=== PATIENT | female | born 1970 | race African-American/Black ===

== ENCOUNTER 2017-06-05 13:12 | Emergency (ER) | payer MEDICARE ==
[2017-06-05 13:52] LABS: Hemoglobin 14.2 g/dL (12.0-16.0); Mean Corpuscular HGB CONC 32.5 g/dL (32.0-36.0); Mean Corpuscular Volume 86.2 fl (81.0-99.0); Mean Platelet Volume 7.8 fL (7.4-10.4); Platelet Count 257 thou/uL (130-400); RBC Distribution Width 12.5 % (11.5-14.5); Red Blood Cell (RBC) Count 5.06 mill/uL (4.20-5.40)
--- NOTE | 2017-06-05 13:55 | RAD ---
RADIOGRAPH CHEST 1 VIEW: HISTORY: A 46-year-old female with dyspnea. FINDINGS: There are no air space densities, pulmonary edema, pneumothorax, or cardiomegaly. The lateral costop hrenic angles are sharp. IMPRESSION: No acute cardiopulmonary findings. jn [] POS: [facility]
[2017-06-05 14:17] LABS: CKMB 1.4 ng/mL (0-6.6); Troponin I Less than 0.010 ng/mL (< 0.028)
[2017-06-05 14:18] LABS: Eosinophils 1 % (0-10); Lymphocytes 46 % (21-51); MDiff Complete? YES; Monocytes 6 % (0-10); Neutrophil 39 % (42-75); PLT Morphology Comment Appears Adequate; RBC Morphology Normal; Reactive Lymphocytes 6 % (0-10)
[2017-06-05 14:31] LABS: ALT (SGPT) 16 U/L (8-55); AST (SGOT) 21 U/L (5-34); Albumin 4.9 g/dL (3.5-5.0); Alkaline Phosphatase 116 U/L (40-150); Anion Gap 16 mmol/L (10-20); BUN (Urea Nitrogen) 10 mg/dL (7.0-18.7); Bilirubin, Total 1.2 mg/dL (0.2-1.2); CK (CPK) 117 U/L (29-168); Calc. Creatinine Clearance 0 mL/min (70-130); Calcium 11.1 mg/dL (7.8-10.44); Carbon Dioxide 26 mmol/L (22-29); Chloride 100 mmol/L (98-107); Estimated GFR-MDRD 75; Globulin 3.9 g/dL (2.4-3.5); Glucose 97 mg/dL (70-105); Protein, Total 8.8 g/dL (6.0-8.3); Sodium 138 mmol/L (136-145)
[2017-06-05] MEDS ORDERED: Ondansetron HCl/PF 4 MG/2 ML Vial ONE ×2 (14:39→17:40)
[2017-06-05] MEDS ORDERED: Morphine 2 MG/ML SYRINGE ONE (14:39)
[2017-06-05] MEDS ORDERED: Pantoprazole 40 MG VIAL ONE (14:39)
[2017-06-05 15:55] LABS: Bilirubin Negative (Negative); Blood, Urine Moderate (Negative); Clarity CLOUDY (Clear); Glucose, Urine (Dipstick) Negative (Negative); Leukocyte Large (Negative); Nitrite Negative (Negative); Protein, Urine (Dipstick) Negative (Neg-Trace); Specific Gravity, Urine 1.005 (1.002-1.036); Urobilinogen 0.2 mg/dL (0.2-1.0); pH, Urine 7.5 (5.0-9.0)
[2017-06-05 15:56] LABS: BHCG - Serum Negative (NEGATIVE); Pregs Control Background? CLEAR/WHITE (CLR/WHITE); Pregs Control Bar Appear? YES (CONTROL BAR)
[2017-06-05 15:57] LABS: Bacteria/HPF 2+ HPF (None Seen); Hyaline Casts/LPF 0-3 HYALINE CAST LPF (0-3 Hyaline); Pathc Cast-AUWi Flag 0.13 (0-2.49); RBC/HPF 0-3 HPF (0-3); WBC/HPF 21-50 HPF (0-3)
[2017-06-05 16:27] LABS: Pregnancy Test - Urine (BHCG) Negative (Negative); Pregu Control Background? CLEAR/WHITE (CLR/WHITE); Pregu Control Bar Appear? YES (CONTROL BAR); Specific Gravity 1.005 (1.002-1.036)
--- NOTE | 2017-06-05 16:42 | CT ---
CT ARTERIOGRAM CHEST WITH IV CONTRAST AND 3D MIP IMAGING: Date: 06/05/17 HISTORY: Chest pain. Dyspnea. FINDINGS: There is good contrast opacification of the pulmonary arteries and thoracic aorta with bovine origin of the great vessels from the aortic arch. No parenchymal lung mass, infiltrate, pleural fluid, or pn eumothorax are apparent. There is mild scarring at each lung base. IMPRESSION: No CT evidence of pulmonary embolus. POS: [facility]
[2017-06-05] MEDS ORDERED: Milk Of Magnesia 30 ML UDCUP ONE (19:13)
[2017-06-05] MEDS ORDERED: Lidocaine Viscous Sol 2% 15 ml UD Cup ONE (19:13)
[2017-06-05 19:52] LABS: INR-International Normal Ratio 1.1; PTT 31.8 SEC (22.9-36.1); Prothrombin Time 14.7 SEC (12.0-14.7)
[2017-06-05 20:14] LABS: Troponin I Less than 0.010 ng/mL (< 0.028)
== END 2017-06-05 20:44 | disposition home or self-care (01) ==
LOC: ERS 13:12
DX: N39.0 Urinary tract infection, site not specified (principal); R07.89 Other chest pain; E03.9 Hypothyroidism, unspecified; E11.9 Type 2 diabetes mellitus without complications; E78.5 Hyperlipidemia, unspecified; Z86.711 Personal history of pulmonary embolism; I10 Essential (primary) hypertension; F41.9 Anxiety disorder, unspecified; F32.9 Major depressive disorder, single episode, unspecified; Z79.899 Other long term (current) drug therapy; Z79.01 Long term (current) use of anticoagulants; Z79.84 Long term (current) use of oral hypoglycemic drugs
CPT/HCPCS: 36415; 71045; 71275; 80053; 81003; 81015; 81025; 82553; 83690; 84484; 84703; 85025; 85610; 85730; 87086; 93005; 94760; 96361; 96374; 96375; 96376; C9113; J0696; J2270; J2405

== ENCOUNTER 2017-10-08 17:58 | Emergency (ER) | payer MEDICARE ==
[~2017-10-08 17:58] MED LIST: ISOVUE-370 76%-LOCM 1 ML ONE
[2017-10-08 18:39] LABS: Bacteria/HPF None Seen HPF (None Seen); Bilirubin Negative (Negative); Blood, Urine Large (Negative); Clarity CLEAR (Clear); Glucose, Urine (Dipstick) Negative (Negative); Hyaline Casts/LPF 0-3 HYALINE CAST LPF (0-3 Hyaline); Leukocyte Trace (Negative); Nitrite Negative (Negative); Pathc Cast-AUWi Flag 0.58 (0-2.49); Protein, Urine (Dipstick) Negative (Neg-Trace); RBC/HPF GREATER THAN 50-TNTC HPF (0-3); Specific Gravity, Urine 1.024 (1.002-1.036); Squamous Epithelial None Seen HPF (0-3); pH, Urine 5.5 (5.0-9.0)
[2017-10-08 19:10] LABS: Hemoglobin 12.7 g/dL (12.0-16.0); Mean Corpuscular HGB CONC 32.5 g/dL (32.0-36.0); Mean Corpuscular Hemoglobin 27.5 pg (27.0-31.0); Mean Corpuscular Volume 84.8 fl (81.0-99.0); Platelet Count 264 thou/uL (130-400); RBC Distribution Width 13.2 % (11.5-14.5); Red Blood Cell (RBC) Count 4.61 mill/uL (4.20-5.40); White Blood Cell (WBC) Count 5.1 thou/uL (4.8-10.8)
[2017-10-08 19:20] LABS: INR-International Normal Ratio 1.2; Prothrombin Time 15.3 SEC (12.0-14.7)
[2017-10-08 19:27] LABS: Lymphocytes 47 % (21-51); MDiff Complete? YES; Monocytes 6 % (0-10); Neutrophil 47 % (42-75); PLT Morphology Comment Appears Adequate
[2017-10-08 19:56] LABS: ALT (SGPT) 13 U/L (8-55); AST (SGOT) 21 U/L (5-34); Albumin 4.2 g/dL (3.5-5.0); Alkaline Phosphatase 135 U/L (40-150); Anion Gap 10 mmol/L (10-20); BUN (Urea Nitrogen) 8 mg/dL (7.0-18.7); Bilirubin, Total 0.7 mg/dL (0.2-1.2); Calc. Creatinine Clearance 0 mL/min (70-130); Carbon Dioxide 26 mmol/L (22-29); Chloride 105 mmol/L (98-107); Estimated GFR-MDRD 84; Globulin 3.5 g/dL (2.4-3.5); Glucose 76 mg/dL (70-105); Lipase 133 U/L (8-78); Potassium 3.6 mmol/L (3.5-5.1); Protein, Total 7.7 g/dL (6.0-8.3); Sodium 137 mmol/L (136-145)
[2017-10-08] MEDS ORDERED: Ondansetron ODT 4 MG TAB ONE (20:03)
[2017-10-08] MEDS ORDERED: Morphine 4 MG/ML VIAL ONE (20:21)
[2017-10-08 20:31] LABS: Pregnancy Test - Urine (BHCG) Negative (Negative); Pregu Control Background? CLEAR/WHITE (CLR/WHITE); Pregu Control Bar Appear? YES (CONTROL BAR); Specific Gravity 1.024 (1.002-1.036)
--- NOTE | 2017-10-08 22:07 | ULT ---
ULTRASOUND PELVIC TRANSABDOMINAL AND TRANSVAGINAL 10/08/17 HISTORY: Pelvic pain. COMPARISON: Pelvic ultrasound from 2015. FINDINGS: Real time chopra scale with color flow and spectral analysis of the pelvis was performed with transabdo ruperto and transvaginal approach. Right ovary is not well seen. Small left ovarian cyst is present. Left ovary measures 2.7 x 1.8 x 2.4 cm with adequate vascular flow. Endometrial thickness is 9 mm. Th e uterus measures 8.9 x 4.9 x 6 cm. Trace free fluid. IMPRESSION: 1. Trace free fluid. 2. Nonvisualization of the right ovary due to overlying bowel gas. 3. Normal appearance of the endometrium. POS: [facility]
--- NOTE | 2017-10-08 22:21 | ULT ---
RIGHT LOWER EXTREMITY VENOUS DOPPLER 10/08/17 HISTORY: Edema of the right lower extremity. COMPARISON: Ultrasound from 2015. TECHNIQUE: Real time chopra scale, color doppler with spectral analysis of the right lower extremity venous system was performed with the linear transducer. The common femoral, femoral, proximal portion of the great er saphenous and deep femoral veins as well as the popliteal and posterior tibial veins were interrog ated. Normal flow and augmentation and compression. IMPRESSION: No deep venous thrombosis. POS: [facility]
--- NOTE | 2017-10-08 23:02 | CT ---
CT ABDOMEN AND PELVIS WITH CONTRAST: 10/08/17 HISTORY: Abdominal pain. COMPARISON: CT abdomen and pelvis 12/19/16. FINDINGS: Lung bases are clear. No pericardial effusion. Mild diastasis recti. The appendix is visualized and appears normal. There are clips along the fallop thom tubes bilaterally. No dilated loops of large or small bowel. No evidence of bowel obstruction. The spleen, pancreas, alberta er and gallbladder all are unremarkable. No hydronephrosis. Skeleton is unremarkable. IMPRESSION: 1. No acute inflammatory process in abdomen or pelvis. 2. Normal appendix. POS: [facility]
[2017-10-08] MEDS ORDERED: cefTRIAXone\\ROCEPHIN 1 GM VIAL ONE (23:04)
[2017-10-08] MEDS ORDERED: Ketorolac Tromethamine 30 MG/ML VIAL ONE (23:50)
[2017-10-10 23:07] LABS: Chlamydia by PCR Not Detected (NotDetected); GC by PCR Not Detected (NotDetected)
== END 2017-10-09 00:15 | disposition home or self-care (01) ==
LOC: ERS 17:58
DX: N39.0 Urinary tract infection, site not specified (principal); K86.1 Other chronic pancreatitis; R79.1 Abnormal coagulation profile; E03.9 Hypothyroidism, unspecified; E11.9 Type 2 diabetes mellitus without complications; E78.5 Hyperlipidemia, unspecified; I10 Essential (primary) hypertension; F32.9 Major depressive disorder, single episode, unspecified; F41.9 Anxiety disorder, unspecified; Z79.84 Long term (current) use of oral hypoglycemic drugs; Z79.899 Other long term (current) drug therapy
CPT/HCPCS: 74177; 76856; 80053; 81003; 81015; 81025; 83690; 85025; 85610; 87480; 87491; 87510; 87591; 87660; 96361; 96365; 96375; J0696; J1885; J2270; Q0162

== ENCOUNTER 2017-12-24 13:39 | Emergency (ER) | payer MEDICARE ==
[2017-12-24 14:13] LABS: #Basophils 0.1 thou/uL (0.0-0.2); #Eosinphils 0.1 thou/uL (0.0-0.7); #Lymphocytes 2.5 thou/uL (1.20-3.40); #Monocytes 0.3 thou/uL (0.11-0.59); #Neutrophils 2.4 thou/uL (1.40-6.50); %Basophils 2.1 % (0.0-1.0); %Monocytes 5.5 % (0.0-10.0); %Neutrophils 44.4 % (42.0-75.0); Hemoglobin 12.6 g/dL (12.0-16.0); Mean Corpuscular HGB CONC 33.5 g/dL (32.0-36.0); Mean Corpuscular Hemoglobin 28.2 pg (27.0-31.0); Mean Corpuscular Volume 84.2 fL (78.0-98.0); Mean Platelet Volume 7.5 fL (7.4-10.4); Platelet Count 227 thou/uL (130-400); Red Blood Cell (RBC) Count 4.48 mill/uL (4.20-5.40); White Blood Cell (WBC) Count 5.5 thou/uL (4.8-10.8)
[2017-12-24 14:29] LABS: Bilirubin Negative (Negative); Blood, Urine Negative (Negative); Clarity CLOUDY (Clear); Glucose, Urine (Dipstick) Negative (Negative); Leukocyte Small (Negative); Nitrite Negative (Negative); Protein, Urine (Dipstick) Negative (Neg-Trace); Specific Gravity, Urine 1.027 (1.002-1.036); pH, Urine 5.5 (5.0-9.0)
[2017-12-24 14:30] LABS: Bacteria/HPF None Seen HPF (None Seen); Hyaline Casts/LPF 0-3 HYALINE CAST LPF (0-3 Hyaline); Pathc Cast-AUWi Flag 0.29 (0-2.49); RBC/HPF 0-3 HPF (0-3)
[2017-12-24 14:31] LABS: Pregnancy Test - Urine (BHCG) Negative (Negative); Pregu Control Background? CLEAR/WHITE (CLR/WHITE); Pregu Control Bar Appear? YES (CONTROL BAR); Specific Gravity 1.027 (1.002-1.036)
[2017-12-24 14:36] LABS: ALT (SGPT) 12 U/L (8-55); AST (SGOT) 15 U/L (5-34); Albumin 4.4 g/dL (3.5-5.0); Alkaline Phosphatase 128 U/L (40-150); Anion Gap 14 mmol/L (10-20); BUN (Urea Nitrogen) 9 mg/dL (7.0-18.7); Bilirubin, Total 0.9 mg/dL (0.2-1.2); Calc. Creatinine Clearance 0 mL/min (70-130); Carbon Dioxide 23 mmol/L (22-29); Chloride 105 mmol/L (98-107); Estimated GFR-MDRD 78; Globulin 3.6 g/dL (2.4-3.5); Glucose 145 mg/dL (70-105); Potassium 3.8 mmol/L (3.5-5.1); Sodium 138 mmol/L (136-145)
[2017-12-24] MEDS ORDERED: diphenhydrAMINE 12.5 MG/5 ML UDCUP ONE (15:08)
[2017-12-24] MEDS ORDERED: diphenhydrAMINE 50 MG/ML VIAL ONE (15:09)
[2017-12-24] MEDS ORDERED: cefTRIAXone\\ROCEPHIN 1 GM VIAL ONE (15:11)
[2017-12-24] MEDS ORDERED: Haloperidol Lactate 5 MG/ML VIAL ONE (15:11)
--- NOTE | 2017-12-24 16:10 | CT ---
CT ABDOMEN AND PELVIS WITH IV CONTRAST 12/24/17 HISTORY: Abdominal pain, bloating. COMPARISON: 10/08/17. FINDINGS: Lung bases are clear. The liver, spleen, kidneys, adrenal glands and pancreas have a normal CT appear ance. Phleboliths are apparent within the pelvis. Urinary bladder is decompressed. Ligation clips are associated with each adnexa. Lack of oral contrast limits evaluation of the bowel. No evidence of obstruction or inflammation. IMPRESSION: No significant abnormalities are demonstrated to explain abdominal pain. POS: [facility]
== END 2017-12-24 17:32 | disposition home or self-care (01) ==
LOC: ERS 13:39
DX: N12 Tubulo-interstitial nephritis, not specified as acute or chronic (principal); E11.9 Type 2 diabetes mellitus without complications; E03.9 Hypothyroidism, unspecified; E78.5 Hyperlipidemia, unspecified; I10 Essential (primary) hypertension; Z86.711 Personal history of pulmonary embolism; F41.9 Anxiety disorder, unspecified; F32.9 Major depressive disorder, single episode, unspecified; Z79.899 Other long term (current) drug therapy; Z79.84 Long term (current) use of oral hypoglycemic drugs
CPT/HCPCS: 74177; 80053; 81003; 81015; 81025; 85025; 96361; 96365; 96375; J0696; J1200; J1630

== ENCOUNTER 2018-05-16 11:46 | Emergency (ER) | payer MEDICARE ==
[2018-05-16] MEDS ORDERED: Metoclopramide HCl 10 MG/2 ML VIAL ONE (12:20)
[2018-05-16 12:41] LABS: ALT (SGPT) 19 U/L (8-55); AST (SGOT) 20 U/L (5-34); Alkaline Phosphatase 134 U/L (40-150); Anion Gap 13 mmol/L (10-20); BUN (Urea Nitrogen) 6 mg/dL (7.0-18.7); Bilirubin, Total 0.9 mg/dL (0.2-1.2); Calc. Creatinine Clearance 0 mL/min (70-130); Calcium 9.2 mg/dL (7.8-10.44); Carbon Dioxide 26 mmol/L (22-29); Chloride 108 mmol/L (98-107); Estimated GFR-MDRD 90; Globulin 3.3 g/dL (2.4-3.5); Glucose 96 mg/dL (70-105); Potassium 4.1 mmol/L (3.5-5.1); Protein, Total 7.3 g/dL (6.0-8.3); Sodium 143 mmol/L (136-145)
[2018-05-16 12:42] LABS: Anisocytosis SLIGHT = 6-15 cells (100X) (0-5/hpf); Band 1 % (5-11); Elliptocytes SLIGHT = 2-5 cells (100X) (0-1/hpf); Hemoglobin 11.5 g/dL (12.0-16.0); Hypochromia SLIGHT = 6-15 cells (100X) (0-5/hpf); Lymphocytes 38 % (21-51); MDiff Complete? YES; Mean Corpuscular HGB CONC 29.9 g/dL (32.0-36.0); Mean Corpuscular Hemoglobin 25.3 pg (27.0-31.0); Mean Corpuscular Volume 84.7 fL (78.0-98.0); Mean Platelet Volume 8.4 fL (7.4-10.4); Monocytes 10 % (0-10); Neutrophil 42 % (42-75); PLT Morphology Comment Appears Adequate; Platelet Count 231 thou/uL (130-400); RBC Distribution Width 14.1 % (11.5-14.5); Reactive Lymphocytes 7 % (0-10); Red Blood Cell (RBC) Count 4.55 mill/uL (4.20-5.40); White Blood Cell (WBC) Count 5.4 thou/uL (4.8-10.8)
--- NOTE | 2018-05-16 12:51 | CT ---
CT BRAIN: DATE: 05/16/2018. PROVIDED CLINICAL HISTORY: Fever, right upper extremity weakness. FINDINGS: Comparison 12/15/2015. The ventricular system appears normal in size and morphology. There is no edis dence for intracranial hemorrhage or mass effect. The extracranial soft tissues and osseous structur es demonstrate an unremarkable CT appearance. IMPRESSION: No evidence for intracranial hemorrhage or mass effect. POS: [facility]
--- NOTE | 2018-05-16 12:53 | RAD ---
TWO VIEWS CHEST: DATE: 05/16/2018. PROVIDED CLINICAL HISTORY: Fever. FINDINGS: Comparison 11/30/2011. Cardiac and mediastinal silhouette are within normal limits. Lungs appear josie r. No pleural fluid or pneumothorax apparent. IMPRESSION: No evidence for an acute cardiopulmonary process. POS: [facility]
[2018-05-16 12:58] LABS: BHCG - Serum Negative (NEGATIVE); Pregs Control Background? CLEAR/WHITE (CLR/WHITE); Pregs Control Bar Appear? YES (CONTROL BAR)
== END 2018-05-16 13:38 | disposition home or self-care (01) ==
LOC: SCSER 11:46
DX: R19.7 Diarrhea, unspecified (principal); R50.9 Fever, unspecified; E11.9 Type 2 diabetes mellitus without complications; E03.9 Hypothyroidism, unspecified; E78.5 Hyperlipidemia, unspecified; F41.9 Anxiety disorder, unspecified; F32.9 Major depressive disorder, single episode, unspecified; I10 Essential (primary) hypertension; I42.9 Cardiomyopathy, unspecified
CPT/HCPCS: 70450; 71046; 80053; 84484; 84703; 85025; 87804; 93005; 96365; J2765

== ENCOUNTER 2018-12-26 08:19 | Outpatient (CLI) | payer OTHER ==
--- NOTE | 2018-12-26 09:13 | CT ---
CT abdomen and pelvis with IV and oral contrast HISTORY: Abdominal pain. Reflux. Irritable bowel syndrome. COMPARISON: 12/24/2017. FINDINGS: Minimal scarring at the right lung base. The liver, spleen, kidneys, adrenal glands, and pa ncreas have a normal CT appearance. No enlarged lymph nodes or free fluid. No evidence of bowel obstruction or inflammation. Ligation clips at each adnexa. IMPRESSION: No significant abnormalities are demonstrated.
[2018-12-26] MEDS ORDERED: ISOVUE-370 76%-LOCM 1 ML ONE (13:32)
== END 2018-12-26 08:20 | disposition home or self-care (01) ==
LOC: BICCT 08:19
PROVIDERS: ATTEND Physician Assistant Medical
DX: K21.9 Gastro-esophageal reflux disease without esophagitis (principal); R19.4 Change in bowel habit; R14.0 Abdominal distension (gaseous); K58.1 Irritable bowel syndrome with constipation; K22.2 Esophageal obstruction; R11.2 Nausea with vomiting, unspecified; R10.84 Generalized abdominal pain
CPT/HCPCS: 74177

== ENCOUNTER 2019-01-08 11:01 | Outpatient (CLI) | payer MEDICARE ==
--- NOTE | 2019-01-13 06:45 | MMO ---
Bilateral MAMMO Bilat Screen [facility]. CLINICAL HISTORY: Patient is 48 years old and is seen for screening. The patient has the following family history of breast cancer: maternal grandmother, great. The patient has no personal history of cancer. VIEWS: The views performed were: bilateral craniocaudal with tomosynthesis and bilateral mediolateral oblique with tomosynthesis. FILMS COMPARED: The present examination has been compared to prior imaging studies performed at [facility] on 01/26/2011, 04/15/2013, 05/28/2014 and 02/08/2017. MAMMOGRAM FINDINGS: There are scattered fibroglandular densities. There are benign appearing calcifications seen in both breasts. There are no suspicious masses, suspicious calcifications, or new areas of architectural distortion. IMPRESSION: THERE IS NO MAMMOGRAPHIC EVIDENCE OF MALIGNANCY. A ROUTINE FOLLOW-UP MAMMOGRAM IN 1 YEAR IS RECOMMENDED. THE RESULTS OF THIS EXAM WERE SENT TO THE PATIENT. ACR BI-RADS Category 2 - Benign finding MAMMOGRAPHY NOTE: 1. A negative mammogram report should not delay a biopsy if a dominant of clinically suspicious mass is present. 2. Approximately 10% to 15% of breast cancers are not detected by mammography. 3. Adenosis and dense breasts may obscure an underlying neoplasm. Reported by: JAJA KUO MD Electonically Signed: [id number]
== END 2019-01-08 11:02 | disposition home or self-care (01) ==
LOC: BICMAMMO 11:01
PROVIDERS: ATTEND Nurse Practitioner Family
DX: Z12.31 Encounter for screening mammogram for malignant neoplasm of breast (principal); Z80.3 Family history of malignant neoplasm of breast
CPT/HCPCS: 77063; 77067

== ENCOUNTER 2019-01-15 08:35 | Outpatient (CLI) | payer MEDICARE, OTHER ==
--- NOTE | 2019-01-15 17:56 | NM ---
NUCLEAR MEDICINE GASTRIC EMPTYING EXAM: RADIOPHARMACEUTICAL: 2.1 mCi Technetium 99m sulfur colloid oral ingestion. FINDINGS: T1/2 is calculated at 167 minutes. Gastric emptying end, terminated at 75% emptying occurs at 241 mi nutes. IMPRESSION: 1. Gastric emptying half-time of 167 minutes. 2. At 4 hours of imaging, there is 75% gastric emptying. POS: [facility]
== END 2019-01-15 08:36 | disposition home or self-care (01) ==
LOC: NM 08:35
PROVIDERS: ATTEND Physician Assistant Medical
DX: K21.9 Gastro-esophageal reflux disease without esophagitis (principal); R14.0 Abdominal distension (gaseous); R15.9 Full incontinence of feces; R10.84 Generalized abdominal pain
CPT/HCPCS: 78264; A9541

== ENCOUNTER 2019-07-09 08:42 | Emergency (ER) | payer MEDICARE ==
[2019-07-09 09:27] LABS: #Basophils 0.1 thou/uL (0.0-0.2); #Eosinphils 0.1 thou/uL (0.0-0.7); #Lymphocytes 1.9 thou/uL (1.20-3.40); #Monocytes 0.4 thou/uL (0.11-0.59); #Neutrophils 4.8 thou/uL (1.40-6.50); %Basophils 1.3 % (0.0-1.0); %Eosinophils 0.9 % (0.0-10.0); %Neutrophils 65.9 % (42.0-75.0); Hemoglobin 12.6 g/dL (12.0-16.0); Mean Corpuscular HGB CONC 31.2 g/dL (32.0-36.0); Mean Corpuscular Hemoglobin 26.3 pg (27.0-31.0); Mean Corpuscular Volume 84.2 fL (78.0-98.0); Platelet Count 262 thou/uL (130-400); RBC Distribution Width 13.1 % (11.5-14.5); Red Blood Cell (RBC) Count 4.81 mill/uL (4.20-5.40); White Blood Cell (WBC) Count 7.2 thou/uL (4.8-10.8)
[2019-07-09 09:36] LABS: BHCG - Serum Negative (NEGATIVE); Pregs Control Background? CLEAR/WHITE (CLR/WHITE); Pregs Control Bar Appear? YES (CONTROL BAR)
[2019-07-09] MEDS ORDERED: Metoclopramide HCl 10 MG/2 ML VIAL ONE (09:36)
[2019-07-09] MEDS ORDERED: Morphine 4 MG/ML VIAL ONE ×2 (09:36→10:55)
[2019-07-09 09:43] LABS: ALT (SGPT) 12 U/L (8-55); AST (SGOT) 16 U/L (5-34); Albumin 4.4 g/dL (3.5-5.0); Alkaline Phosphatase 119 U/L (40-110); Anion Gap 11 mmol/L (10-20); BUN (Urea Nitrogen) 10 mg/dL (7.0-18.7); Bilirubin, Total 1.4 mg/dL (0.2-1.2); Calc. Creatinine Clearance 0 mL/min (70-130); Calcium 9.7 mg/dL (7.8-10.44); Carbon Dioxide 27 mmol/L (22-29); Chloride 103 mmol/L (98-107); Estimated GFR-MDRD 73; Globulin 3.4 g/dL (2.4-3.5); Glucose 121 mg/dL (70-105); Magnesium 1.9 mg/dL (1.6-2.6); Protein, Total 7.8 g/dL (6.0-8.3); Sodium 137 mmol/L (136-145)
--- NOTE | 2019-07-09 09:46 | RAD ---
SINGLE VIEW CHEST: Date: 07/09/2019 COMPARISON: 05/16/18. HISTORY: Left arm and leg pain. Belching and constipation for 1 week. FINDINGS: Single view of the chest shows a normal sized cardiomediastinal silhouette. There is no evidence of c onsolidation, mass, or pleural effusion. The bones are unremarkable. IMPRESSION: No evidence of acute cardiopulmonary disease. POS: [facility]
--- NOTE | 2019-07-09 10:43 | CT ---
CT OF THE BRAIN WITHOUT CONTRAST: COMPARISON: 05/16/2018. HISTORY: Left arm and leg pain. The patient feels like she is stuttering. TECHNIQUE: Multiple contiguous axial images were obtained in a CT of the brain without contrast. FINDINGS: This exam is limited secondary to motion artifact. The brain is normal in morphology and attenuation without focal lesions or confluent areas of infarction. There is no evidence of hydrocephalus, intr acranial hemorrhage, or extraaxial fluid collection. The calvarium and overlying soft tissues are unremarkable. The visualized paranasal sinuses and mast oid air cells are well aerated. IMPRESSION: No evidence of acute intracranial abnormality. POS: [facility]
--- NOTE | 2019-07-09 11:03 | CT ---
CTA CHEST WITH IV CONTRAST AND 3D POSTPROCESSING CT ABDOMEN AND PELVIS WITH IV CONTRAST: HISTORY: Left arm and left leg pain. Abnormal speech, belching, constipation, and nausea. The patient has a history of blood clots and is currently on Eliquis and has had 3 Pes in the past. FINDINGS: Comparison is made with the CT pulmonary angiogram of 06/05/[address] abdomen and pelvis of 12/26/2018 . There is good contrast opacification of the pulmonary arterial vasculature without filling defects to suggest pulmonary embolus. The thoracoabdominal aorta is well opacified without aneurysm or dissect ion. No pleural or pericardial effusions are seen. There is minimal scarring at the right lung base . The liver, spleen, pancreas, adrenal glands, and kidneys are normal. No calcified gallstones are see n. Uterus and ovaries are present. There are postop changes of bilateral tubal ligation. No free a ir, free fluid, or lymphadenopathy is noted in the abdomen or pelvis. The small bowel loops are not abnormally dilated. A normal-appearing appendix is present. No acute osseous abnormalities are seen. IMPRESSION: 1. No CT evidence of pulmonary embolism. 2. No CT evidence of acute process in the abdomen or pelvis. POS: [facility]
[2019-07-09] MEDS ORDERED: Iopamidol-370 76% 500 ML 1 ML ONE (16:23)
== END 2019-07-09 11:58 | disposition home or self-care (01) ==
LOC: ERS 08:42
DX: R10.9 Unspecified abdominal pain (principal); R07.9 Chest pain, unspecified; I42.9 Cardiomyopathy, unspecified; E11.9 Type 2 diabetes mellitus without complications; E03.9 Hypothyroidism, unspecified; E78.5 Hyperlipidemia, unspecified; E78.00 Pure hypercholesterolemia, unspecified; I10 Essential (primary) hypertension; Z86.711 Personal history of pulmonary embolism; F41.9 Anxiety disorder, unspecified; F32.9 Major depressive disorder, single episode, unspecified; Z79.02 Long term (current) use of antithrombotics/antiplatelets
CPT/HCPCS: 36415; 70450; 71045; 71275; 74177; 80053; 83735; 84484; 84703; 85025; 93005; 94760; 96365; 96375; 96376; J2270; J2765; Q9967

== ENCOUNTER 2019-10-24 13:34 | Emergency (ER) | payer MEDICARE ==
[2019-10-24] MEDS ORDERED: Acetaminophen 500 MG TAB ONE (14:13)
[2019-10-24 14:16] LABS: Hemoglobin 12.4 g/dL (12.0-16.0); Mean Corpuscular Hemoglobin 27.2 pg (27.0-31.0); Mean Corpuscular Volume 85.1 fL (78.0-98.0); Mean Platelet Volume 7.7 fL (7.4-10.4); Platelet Count 256 thou/uL (130-400); RBC Distribution Width 13.4 % (11.5-14.5); Red Blood Cell (RBC) Count 4.56 mill/uL (4.20-5.40); White Blood Cell (WBC) Count 4.6 thou/uL (4.8-10.8)
[2019-10-24 14:30] LABS: Eosinophils 2 % (0-10); Lymphocytes 53 % (21-51); MDiff Complete? YES; Monocytes 16 % (0-10); Neutrophil 29 % (42-75); Platelet Morphology Comment Appears Adequate; RBC Morphology Normal
[2019-10-24 14:34] LABS: ALT (SGPT) 11 U/L (8-55); AST (SGOT) 17 U/L (5-34); Albumin 4.1 g/dL (3.5-5.0); Alkaline Phosphatase 123 U/L (40-110); Anion Gap 12 mmol/L (10-20); BUN (Urea Nitrogen) 7 mg/dL (7.0-18.7); Bilirubin, Total 0.6 mg/dL (0.2-1.2); CK (CPK) 85 U/L (29-168); Calc. Creatinine Clearance 0 mL/min (70-130); Calcium 9.4 mg/dL (7.8-10.44); Carbon Dioxide 26 mmol/L (22-29); Chloride 103 mmol/L (98-107); Estimated GFR-MDRD 79; Globulin 3.3 g/dL (2.4-3.5); Glucose 74 mg/dL (70-105); Magnesium 1.9 mg/dL (1.6-2.6); Protein, Total 7.4 g/dL (6.0-8.3); Sodium 137 mmol/L (136-145)
--- NOTE | 2019-10-24 14:55 | RAD ---
PORTABLE CHEST ONE VIEW: 10/24/19 at 1:41 p.m. HISTORY: Weakness. Hypertension. Neck pain. COMPARISON: 07/09/19. The heart size is normal. The lungs are expanded without lobar consolidation, pneumothoraces or pleur al effusions. IMPRESSION: No radiographic evidence of acute cardiopulmonary process. POS: [facility]
[2019-10-24 15:18] LABS: Bacteria/HPF None Seen HPF (None Seen); Bilirubin Negative (Negative); Blood, Urine 1+ (Negative); Clarity Clear (Clear); Glucose, Urine (Dipstick) Normal (Negative); Leukocyte Negative Leu/uL (Negative); Nitrite Negative (Negative); Protein, Urine (Dipstick) Negative (Neg-Trace); RBC/HPF 0-3 HPF (0-3); Squamous Epithelial 0-3 HPF (0-3); Urobilinogen Normal mg/dL (Less than 2); WBC/HPF 0-3 HPF (0-3)
[2019-10-24] MEDS ORDERED: Ketorolac Tromethamine 30 MG/ML VIAL ONE (16:17)
== END 2019-10-24 17:00 | disposition home or self-care (01) ==
LOC: ERS 13:34
DX: S16.1XXA Strain of muscle, fascia and tendon at neck level, initial encounter (principal); R53.83 Other fatigue; E11.9 Type 2 diabetes mellitus without complications; E03.9 Hypothyroidism, unspecified; E78.5 Hyperlipidemia, unspecified; E78.00 Pure hypercholesterolemia, unspecified; I10 Essential (primary) hypertension; F41.9 Anxiety disorder, unspecified; F32.9 Major depressive disorder, single episode, unspecified; K76.0 Fatty (change of) liver, not elsewhere classified; Z86.711 Personal history of pulmonary embolism; Z79.01 Long term (current) use of anticoagulants; Z79.84 Long term (current) use of oral hypoglycemic drugs; Z79.899 Other long term (current) drug therapy; X58.XXXA Exposure to other specified factors, initial encounter
CPT/HCPCS: 36415; 71045; 80053; 81003; 81015; 82550; 83605; 83735; 84484; 85025; 93005; 96374; J1885

== ENCOUNTER 2019-11-11 14:05 | Outpatient (CLI) | payer MEDICARE ==
--- NOTE | 2019-11-11 14:25 | ULT ---
EXAM: Pelvic ultrasound HISTORY: Postcoital bleeding COMPARISON: 02/03/2015 TECHNIQUE: Multiple grayscale and color Doppler images were obtained in a transabdominal and transvag inal pelvic ultrasound. Spectral analysis of the Doppler waveforms of the ovaries were performed. FINDINGS: CERVIX: No evidence of nabothian cysts. UTERUS: Normal in size without focal abnormality. ENDOMETRIAL STRIPE: 12 mm. No free fluid is seen in the pelvis. RIGHT OVARY: Normal flow without focal mass. A dominant follicle is seen in the right ovary measuring 4.1 cm in greatest dimension. LEFT OVARY: Normal flow without focal mass. IMPRESSION: No significant pelvic abnormality
== END 2019-11-11 14:06 | disposition home or self-care (01) ==
LOC: BICULT 14:05
PROVIDERS: ATTEND Nurse Practitioner Women's Health
DX: N93.0 Postcoital and contact bleeding (principal)
CPT/HCPCS: 76856

== ENCOUNTER 2019-12-14 06:35 | Outpatient (CLI) | payer MEDICARE, OTHER ==
[2019-12-15 12:20] LABS: SARS-CoV-2 MS2 Positive; SARS-CoV-2 N Gene Negative; SARS-CoV-2 S Gene Negative; SARS-CoV-2 orf1ab Negative
== END 2019-12-14 06:36 | disposition home or self-care (01) ==
LOC: LABBT 06:35
PROVIDERS: ATTEND Physician Assistant Medical
DX: Z01.812 Encounter for preprocedural laboratory examination (principal); Z11.59 Encounter for screening for other viral diseases; K58.1 Irritable bowel syndrome with constipation; E11.43 Type 2 diabetes mellitus with diabetic autonomic (poly)neuropathy; K31.84 Gastroparesis; R13.19 Other dysphagia
CPT/HCPCS: 87635; U0003

== ENCOUNTER 2020-06-21 12:45 | Outpatient (CLI) | payer MEDICARE ==
--- NOTE | 2020-06-21 13:20 | RAD ---
EXAM: Chest PA and lateral: HISTORY: Shortness of breath. COMPARISON: 10/24/2019, 05/16/2018 FINDINGS: Heart: Normal cardiac silhouette Aorta: Unremarkable Pulmonary vessels: Normal Costophrenic angles: Costophrenic angles are clear. Lungs: No consolidation or masses. Pneumothorax: No pneumothorax Osseous structures: No osseous abnormalities IMPRESSION: No acute cardiopulmonary process.
== END 2020-06-21 12:46 | disposition home or self-care (01) ==
LOC: BICRAD 12:45
DX: R06.02 Shortness of breath (principal)
CPT/HCPCS: 71046

== ENCOUNTER 2021-05-31 13:45 | Outpatient (CLI) | payer MEDICARE | END 2021-05-31 13:46 | disposition home or self-care (01) | LOC: BICMAMMO 13:45 | PROVIDERS: ATTEND Nurse Practitioner Family | DX: Z12.31 Encounter for screening mammogram for malignant neoplasm of breast (principal); Z80.3 Family history of malignant neoplasm of breast | CPT/HCPCS: 77063; 77067 ==

== ENCOUNTER 2021-08-11 09:17 | Outpatient (CLI) | payer MEDICARE | END 2021-08-11 09:18 | disposition home or self-care (01) | LOC: BICULT 09:17 | PROVIDERS: ATTEND Nurse Practitioner Women's Health | DX: N95.0 Postmenopausal bleeding (principal); N83.201 Unspecified ovarian cyst, right side | CPT/HCPCS: 76856 ==

== ENCOUNTER 2022-07-17 13:48 | Outpatient (CLI) | payer OTHER | END 2022-07-17 13:49 | disposition home or self-care (01) | LOC: ULT 13:48 | PROVIDERS: ATTEND Nurse Practitioner Women's Health | DX: N93.9 Abnormal uterine and vaginal bleeding, unspecified (principal) | CPT/HCPCS: 76856 ==

== ENCOUNTER 2022-08-02 13:02 | Outpatient (CLI) | payer MEDICARE, OTHER | END 2022-08-02 13:03 | disposition home or self-care (01) | LOC: BICMAMMO 13:02 | PROVIDERS: ATTEND Family Medicine | DX: Z12.31 Encounter for screening mammogram for malignant neoplasm of breast (principal); Z80.3 Family history of malignant neoplasm of breast | CPT/HCPCS: 77063; 77067 ==

== ENCOUNTER 2023-01-09 08:40 | Outpatient (CLI) | payer MEDICARE, OTHER | END 2023-01-09 08:41 | disposition home or self-care (01) | LOC: RAD 08:40 | PROVIDERS: ATTEND Internal Medicine Gastroenterology | DX: R13.19 Other dysphagia (principal); E11.43 Type 2 diabetes mellitus with diabetic autonomic (poly)neuropathy; K31.84 Gastroparesis; K58.1 Irritable bowel syndrome with constipation; R05.3 Chronic cough | CPT/HCPCS: 71046 ==

== ENCOUNTER 2023-05-07 08:51 | Outpatient (CLI) | payer OTHER | END 2023-05-07 08:52 | disposition home or self-care (01) | LOC: BICULT 08:51 | PROVIDERS: ATTEND Family Medicine | DX: N93.9 Abnormal uterine and vaginal bleeding, unspecified (principal); D25.9 Leiomyoma of uterus, unspecified | CPT/HCPCS: 76856 ==

== ENCOUNTER 2023-06-20 08:35 | Outpatient (CLI) | payer OTHER | END 2023-06-20 08:36 | disposition home or self-care (01) | LOC: BICRAD 08:35 | PROVIDERS: ATTEND Family Medicine | DX: M54.2 Cervicalgia (principal); M54.6 Pain in thoracic spine; M54.50 Low back pain, unspecified; M47.814 Spondylosis without myelopathy or radiculopathy, thoracic region; M47.816 Spondylosis without myelopathy or radiculopathy, lumbar region | CPT/HCPCS: 72040; 72072; 72100 ==

== ENCOUNTER 2025-02-02 23:12 | Emergency (ER) | payer OTHER ==
[2025-02-02 23:51] LABS: #Basophils 0.04 10x3/uL (0.0-0.2); #Eosinophils 0.10 10x3/uL (0.0-0.7); #Monocytes 0.45 10x3/uL (0.11-0.59); #Neutrophils 2.02 10x3/uL (1.40-6.50); %Basophils 0.7 % (0.0-1.0); %Eosinophils 1.7 % (0.0-10.0); %Lymphocytes 54.9 % (21.0-51.0); %Monocytes 7.7 % (0.0-10.0); %Neutrophils 34.8 % (42.0-75.0); Hematocrit 37.5 % (36.0-47.0); Hemoglobin 11.9 g/dL (12.0-16.0); Mean Corpuscular Hemoglobin 26.7 pg (27.0-31.0); Mean Corpuscular Volume 84.3 fL (78.0-98.0); Platelet Count 205 10x3/uL (130-400); Red Blood Cell (RBC) Count 4.45 mill/uL (4.20-5.40); White Blood Cell (WBC) Count 5.81 10x3/uL (4.8-10.8)
[2025-02-03 00:05] LABS: ALT (SGPT) 34 U/L (Less than 34); AST (SGOT) 39 U/L (11-34); Albumin 4.1 g/dL (3.1-4.5); Alkaline Phosphatase 157 U/L (40-110); Anion Gap 13 mmol/L (10-20); BUN (Urea Nitrogen) 14 mg/dL (9.8-20.1); Bilirubin, Total 1.3 mg/dL (0.3-1.2); Calc. Creatinine Clearance 0 mL/min (70-130); Calcium 9.7 mg/dL (7.8-10.44); Carbon Dioxide 28 mmol/L (22-29); Chloride 103 mmol/L (98-107); Globulin 3.4 g/dL (2.4-3.5); Glucose 99 mg/dL (70-105); Potassium 3.7 mmol/L (3.5-5.1); Sodium 140 mmol/L (136-145)
[2025-02-03 03:38] LABS: Free T4 (Free Thyroxine) 1.28 ng/dL (0.70-1.48); Thyroid Stimulating Hormone 1.4586 uIU/mL (0.35-4.94)
== END 2025-02-03 04:21 | disposition home or self-care (01) ==
LOC: ERS 23:12
DX: S70.12XA Contusion of left thigh, initial encounter (principal); R53.83 Other fatigue; E11.9 Type 2 diabetes mellitus without complications; E03.9 Hypothyroidism, unspecified; E78.5 Hyperlipidemia, unspecified; I10 Essential (primary) hypertension; Z79.890 Hormone replacement therapy; Z79.01 Long term (current) use of anticoagulants; Z79.84 Long term (current) use of oral hypoglycemic drugs; Z79.899 Other long term (current) drug therapy; X58.XXXA Exposure to other specified factors, initial encounter
CPT/HCPCS: 71045; 80053; 83880; 84439; 84443; 84484; 85025; 85379; 93005

== ENCOUNTER 2025-02-23 08:55 | Emergency (ER) | payer OTHER | END 2025-02-23 09:58 | disposition home or self-care (01) | LOC: ERS 08:55 | DX: S19.9XXA Unspecified injury of neck, initial encounter (principal); M54.50 Low back pain, unspecified; E11.9 Type 2 diabetes mellitus without complications; I10 Essential (primary) hypertension; Z86.711 Personal history of pulmonary embolism; V49.9XXA Car occupant (driver) (passenger) injured in unspecified traffic accident, initial encounter | CPT/HCPCS: 99283 ==

== ENCOUNTER 2025-03-05 15:36 | Outpatient (CLI) | payer OTHER | END 2025-03-05 15:37 | disposition home or self-care (01) | LOC: BICMAMMO 15:36 | PROVIDERS: ATTEND Family Medicine | DX: Z12.31 Encounter for screening mammogram for malignant neoplasm of breast (principal); Z80.3 Family history of malignant neoplasm of breast | CPT/HCPCS: 77063; 77067 ==

== ENCOUNTER 2025-03-08 13:43 | Outpatient (CLI) | payer OTHER | END 2025-03-08 13:44 | disposition home or self-care (01) | LOC: ULT 13:43 | DX: N92.4 Excessive bleeding in the premenopausal period (principal); R93.89 Abnormal findings on diagnostic imaging of other specified body structures | CPT/HCPCS: 76856 ==

== ENCOUNTER 2025-03-22 17:36 | Emergency (ER) | payer OTHER | END 2025-03-22 20:44 | disposition home or self-care (01) | LOC: ERS 17:36 | DX: M54.2 Cervicalgia (principal); E11.9 Type 2 diabetes mellitus without complications; I10 Essential (primary) hypertension | CPT/HCPCS: 99283 ==